=== PATIENT | male | born 1965 | race Caucasian/White ===

== ENCOUNTER 2016-10-18 23:33 | Emergency (ER) | payer MEDICAID ==
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
[2016-10-19 01:09] VITALS: BP 169/99
== END 2016-10-19 00:39 | disposition home or self-care (01) ==
LOC: ER 23:33
DX: F91.1 Conduct disorder, childhood-onset type (principal)
CPT/HCPCS: 99285